=== PATIENT | male | born 1980 | race Caucasian/White ===

== ENCOUNTER 2018-04-06 18:01 | Emergency (ER) | payer OTHER ==
[2018-04-06] MEDS ORDERED: HYDROcodone/ACETAMIN 5-325 MG* 1 TAB PO ONE (21:13)
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
[2018-04-06 21:27] VITALS: BP 146/101
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
== END 2018-04-06 21:26 | disposition home or self-care (01) ==
LOC: ED 18:01
DX: S92.515A Nondisplaced fracture of proximal phalanx of left lesser toe(s), initial encounter for closed fracture (principal); W22.8XXA Striking against or struck by other objects, initial encounter; Y92.9 Unspecified place or not applicable; F17.210 Nicotine dependence, cigarettes, uncomplicated
CPT/HCPCS: 99281

== ENCOUNTER 2018-04-07 20:55 | Emergency (ER) | payer OTHER ==
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
[2018-04-07 22:41] VITALS: BP 130/76
== END 2018-04-07 22:41 | disposition home or self-care (01) ==
LOC: ED 20:55
DX: Z63.79 Other stressful life events affecting family and household (principal); F17.210 Nicotine dependence, cigarettes, uncomplicated
CPT/HCPCS: 99282